=== PATIENT | male | born 1965 | race Two or more races ===

== ENCOUNTER 2025-02-20 14:35 | Outpatient (REF) | payer OTHER, SELFPAY ==
--- NOTE | ~2025-02-20 | XR_ITS ---
EXAMINATION: Bilateral knee 3 views each CLINICAL INDICATION: Bilateral knee pain. COMPARISON: None. FINDINGS: Left knee: There is mild loss of medial and patellofemoral compartment joint space with minimal periarticular spurring. No loose bodies, joint effusion or bony erosive changes seen. Right knee: Mild loss of medial and paravertebral compartment joint space with periarticular spurring. No visible acute fracture, dislocation or subluxation seen. No joint effusion. The soft tissues are normal. XR/XR Knee Kosta 3V IMPRESSION: Mild DJD medial and patellofemoral compartments. No visible acute fracture or dislocation seen. Electronically signed by: Lukasz Arango MD 02/21/2025 08:23 AM EDT
[2025-02-20 15:00] LABS: MANUAL DIFF FLAG NO
[2025-02-20 15:39] LABS: Basophils Percent Auto 0.5 % (0-2); Eosinophils Absolute Auto 0.2 X10*3/uL (0.0-0.4); Eosinophils Percent Auto 2.7 % (0-4); Hematocrit 37.4 % (42.0-52.0); Hemoglobin 12.2 g/dl (14.0-18.0); Imm Gran Abs Auto 0.05 X10*3/uL (0.00-0.03); Imm Gran Pct Auto 0.8 % (0.0-0.4); Lymphocytes Absolute Auto 2.3 X10*3/uL (1.2-4.9); Lymphocytes Percent Auto 35.5 % (20-40); Mean Corpuscular HGB Conc 32.6 g/dl (31.0-36.0); Mean Corpuscular Hemoglobin 28.2 pg (27.0-33.0); Mean Corpuscular Volume 86.4 fL (80.0-98.0); Mean Platelet Volume 10.6 fL (9.4-12.4); Monocytes Absolute Auto 0.5 X10*3/uL (0.1-1.2); Monocytes Percent Auto 7.6 % (2-11); Neutrophils Absolute Auto 3.5 x10*3/uL (2.0-8.3); Neutrophils Percent Auto 52.9 % (45-73); Platelet Count 206 X10*3/uL (160-400); Red Blood Count 4.33 X10*6/uL (4.60-5.80); Red Cell Distribution Width 12.6 % (11.0-16.0); White Blood Count 6.6 X10*3/uL (4.8-10.8)
[2025-02-20 15:47] LABS: Estimated Average Glucose 163 mg/dL; Hemoglobin A1c % 7.3 % (<6.0); Total Hemoglobin (HGBA1C) 3178.6419 umol/L
[2025-02-20 16:02] LABS: Alanine Aminotransferase 18 U/L (0-40); Albumin Level 4.1 g/dL (3.5-5.0); Alkaline Phosphatase 72 U/L (39-117); Anion Gap 10 (12-20); Aspartate Amino Transferase 18 U/L (5-37); Bilirubin Total 0.3 mg/dL (0.0-1.0); Blood Urea Nitrogen 11 mg/dL (9-16); Calcium 9.7 mg/dL (8.4-10.2); Carbon Dioxide 28 mmol/L (22-29); Chloride 108 mmol/L (96-108); Cholesterol 149 mg/dL (<200); Estimated Glomerular Filt Rate > 60; Glucose Random 127 mg/dL (60-115); HDL Cholesterol 59 mg/dL (>40); LDL Cholesterol Calculated 69 mg/dL (<100); Potassium 4.6 mmol/L (3.3-5.1); Sodium 141 mmol/L (135-145); Total Protein 6.9 g/dL (6.5-8.0); Triglycerides 106 mg/dL (<150)
[2025-02-20 16:37] LABS: Creatinine Urine 69.58 mg/dL; Microalbum/Creatinine Ratio Ur 8.6 ug/mg cr (<30)
--- OUTSIDE RECORDS SUMMARY | 2025-02-20 17:09 | XMS_ITS | Encounter Summary ---
Author Organization [facility] Address [address] [place] [address] Care Team Providers Care Bar Gauger And Lubricator Tender Name Role Phone Chance Bryant MD Primary Care Provider [phone] Encounter Details Date Type Department Care Team (Late st Contact Info) Description 04/22/2013 Ophthalmology Data Conversion [facility] Historical Conversion Department [address] [place] [address] [address] Social History Tobacco Use Types Packs/Day Years Used Date Smoking Tobacco: Never Assessed Sex and Gender Information Value Date Recorded Sex Assigned at Male 04/01/2023 1:10 PM EDT Legal Sex Male 4:57 AM EDT Gender Identity Male 04/01/2023 1:10 PM EDT Sexual Orientation Straight 04/01/2023 1: 10 PM EDT documented as of this encounter Plan of Treatment Upcoming Encounters Date Type Department Care Team (Late st Contact Info) Description 03/31/2025 9:00 AM EDT Office Visit [facility] 10 [address] Main Department 10 [facility] [place] [address] Chance Bryant MD [address] [place] [address] 05/03/2025 8:00 AM EDT Office Visit [facility] 198 [facility] Rheumatology [address] [place] [address] Pedro Gerardo MD [address] [place] [address] 05/09/2025 12:00 PM EDT Office Visit [facility] Ophthalmology 20 [place] [address] Michaela Su MD 20 [place] [address] documented as of this encounter Visit Diagnoses Not on filedocumented in this encounter Additional Health Concerns Infection Onset Date Last Indicated Resolved Time R/O Respiratory Virus Infection 01/29/2024 01/29/2024 1:17 PM EDT R/O Influenza 01/29/2024 01/29/2024 01/29/2024 1:1 7 PM EDT COVID-19 - Suspected infection 01/29/2024 01/29/2024 01/29/2024 1:17 PM EDT documented as of this encounter Care Teams Bar Gauger And Lubricator Tender Relationship Specialty Start Date End Date Chance Bryant MD [address] [place] [address] PCP - General Family Medicine 08/08/24 documented as of this encounter
--- OUTSIDE RECORDS SUMMARY | 2025-02-20 17:09 | XMS_ITS | Encounter Summary ---
Author Organization [facility] Address [address] [place] [address] Care Team Providers Care Unit Controller Name Role Phone Chance Bryant MD Primary Care Provider [phone] Encounter Details Date Type Department Care Team (Late st Contact Info) Description 08/16/2019 Ophthalmology Data Conversion [facility] Historical Conversion Department 100 [place] [address] [address] Social History Tobacco Use Types Packs/Day Years Used Date Smoking Tobacco: Former Comments:: Sex and Gender Information Value Date Recorded Sex Assigned at Male 04/01/2023 1:10 PM EDT Legal Sex Male 4:57 AM EDT Gender Identity Male 04/01/2023 1:10 PM EDT Sexual Orientation Straight 04/01/2023 1: 10 PM EDT documented as of this encounter Plan of Treatment Upcoming Encounters Date Type Department Care Team (Late Contact Info) Description 03/31/2025 9:00 AM EDT Office Visit [facility] 10 N Main Department 10 [facility] [place] [address] Chance Bryant MD [address] [place] [address] 05/03/2025 8:00 AM EDT Office Visit [address] Rheumatology [address] [place] [address] Pedro Gerardo MD [address] [place] [address] 05/09/2025 12:00 PM EDT Office Visit [facility] Ophthalmology [address] [place] [address] Michaela Su MD 20 [place] [address] documented as of this encounter Visit Diagnoses Not on filedocumented in this encounter Additional Health Concerns Infection Onset Date Last Indicated Resolved Time R/O Respiratory Virus Infection 01/29/2024 01/29/2024 1:17 PM EDT R/O Influenza 01/29/2024 01/29/2024 01/29/2024 1:1 7 PM EDT COVID-19 - Suspected infection 01/29/2024 01/29/2024 01/29/2024 1:17 PM EDT documented as of this encounter Care Teams Unit Controller Relationship Specialty Start Date End Date Chance Bryant MD [address] [place] [address] PCP - General Family Medicine 08/08/24 documented as of this encounter
--- OUTSIDE RECORDS SUMMARY | 2025-02-20 17:09 | XMS_ITS | Encounter Summary ---
Author Organization [facility] Address [address] [place] [address] Care Team Providers Care Mental Telepathist Name Role Phone Chance Bryant MD Primary Care Provider Encounter Details Date Type Department Care Team ([facility] Contact Info) Description 04/28/2023 Ophthalmology Data Conversion [facility] Ophthalmology [address] [place] [address] Michaela Su MD [address] [place] [address] Social History Tobacco Use Types Packs/Day Years Used Date Smoking Tobacco: Former Smokeless Tobacco: Never Comments:: Alcohol Use Standard Drinks/Week Comments Not Currently 0 (1 standard drink = 0.6 oz pur e alcohol) Sex and Gender Information Value Date Recorded Sex Assigned at Male 04/01/2023 1:10 PM EDT Legal Sex Male 4:57 AM EDT Gender Identity Male 04/01/2023 1:10 PM EDT Sexual Orientation Straight 04/01/2023 1: 10 PM EDT documented as of this encounter Plan of Treatment Upcoming Encounters Date Type Department Care Team ([facility] Contact Info) Description 03/31/2025 9:00 AM EDT Office Visit [facility] 10 N Main Department [address] [place] [phone] Chance Bryant MD [address] [place] [address] 05/03/2025 8:00 AM EDT Office Visit [address] Rheumatology 198 [place] [address] Pedro Gerardo MD [address] [place] [address] 05/09/2025 12:00 PM EDT Office Visit [facility] Ophthalmology 20 [place] [address] Michaela Su MD 20 [place] [address] documented as of this encounter Visit Diagnoses Not on filedocumented in this encounter Additional Health Concerns Infection Onset Date Last Indicated Resolved Time R/O Respiratory Virus Infection 01/29/2024 01/29/2024 1:17 PM EDT R/O Influenza 01/29/2024 01/29/2024 01/29/2024 1:1 7 PM EDT COVID-19 - Suspected infection 01/29/2024 01/29/2024 01/29/2024 1:17 PM EDT documented as of this encounter Care Teams Mental Telepathist Relationship Specialty Start Date End Date Chance Bryant MD [address] [place] [address] PCP - General Family Medicine 08/08/24 documented as of this encounter
--- OUTSIDE RECORDS SUMMARY | 2025-02-20 17:09 | XMS_ITS | Encounter Summary ---
Author Organization [facility] Address [address] [place] [address] Care Team Providers Care Frit Mixer And Burner Name Role Phone Chance Bryant MD Primary Care Provider [phone] Encounter Details Date Type Department Care Team (Late st Contact Info) Description 05/16/2013 Ophthalmology Data Conversion [facility] Historical Conversion Department 100 [place] [address] [address] Social History Tobacco Use Types Packs/Day Years [...] Description 03/31/2025 9:00 AM EDT Office Visit [facility] 10 [address] Main Department 10 [facility] [place] [address] Chance Bryant MD [address] [place] [address] 05/03/2025 8:00 AM EDT Office Visit [facility] [address] [facility] Rheumatology [address] [place] [address] Pedro Gerardo MD [address] [place] [address] 05/09/2025 12:00 PM EDT Office Visit [facility] Ophthalmology 20 [place] [address] Michaela Su MD 20 [place] [address] documented as of this encounter Visit Diagnoses Not on filedocumented in this encounter Additional Health Concerns Infection Onset Date Last Indicated Resolved Time R/O Respiratory Virus Infection 01/29/2024 01/29/2024 1:17 PM EDT R/O Influenza 01/29/2024 01/29/2024 01/29/2024 1:1 7 PM EDT COVID-19 - Suspected infection 01/29/2024 01/29/2024 01/29/2024 1:17 PM EDT documented as of this encounter Care Teams Frit Mixer And Burner Relationship Specialty Start Date End Date Chance Bryant MD [address] [place] [address] PCP - General Family Medicine 08/08/24 documented as of this encounter
--- OUTSIDE RECORDS SUMMARY | 2025-02-20 17:09 | XMS_ITS | Encounter Summary ---
Author Organization [facility] Address [address] [place] [address] Care Team Providers Care Net Trainer Name Role Phone Chance Bryant MD Primary Care Provider [phone] Encounter Details Date Type Department Care Team (Late st Contact Info) Description 08/12/2018 Ophthalmology Data Conversion [facility] Historical Conversion Department 100 [place] [address] [address] Social History Tobacco Use Types Packs/Day Years [...] Description 03/31/2025 9:00 AM EDT Office Visit [facility] 10 N Main Department 10 [facility] [place] [address] Chance Bryant MD [address] [place] [address] 05/03/2025 8:00 AM EDT Office Visit [address] Rheumatology [address] [place] [address] Pedro Gerardo MD [address] [place] [address] 05/09/2025 12:00 PM EDT Office Visit [facility] Ophthalmology [address] [place] [address] Michaela Su MD 20 [place] [address] documented as of this encounter Visit Diagnoses Not on filedocumented in this encounter Additional Health Concerns Infection Onset Date Last Indicated Resolved Time R/O Respiratory Virus Infection 01/29/2024 01/29/2024 1:17 PM EDT R/O Influenza 01/29/2024 01/29/2024 01/29/2024 1:1 7 PM EDT COVID-19 - Suspected infection 01/29/2024 01/29/2024 01/29/2024 1:17 PM EDT documented as of this encounter Care Teams Net Trainer Relationship Specialty Start Date End Date Chance Bryant MD [address] [place] [address] PCP - General Family Medicine 08/08/24 documented as of this encounter
--- OUTSIDE RECORDS SUMMARY | 2025-02-20 17:09 | XMS_ITS | Encounter Summary ---
Author Organization [facility] Address [address] [place] [address] Care Team Providers Care Grazing Examiner Name Role Phone Chance Bryant MD Primary Care Provider [phone] Encounter Details Date Type Department Care Team (Late st Contact Info) Description 08/12/2018 Ophthalmology Data Conversion [facility] Historical Conversion Department 100 [place] [address] [address] Social History Tobacco Use Types Packs/Day Years [...] Description 03/31/2025 9:00 AM EDT Office Visit [facility] 10 N Main Department 10 [facility] [place] [address] Cahnce Bryant MD [address] [place] [address] 05/03/2025 8:00 AM EDT Office Visit [address] Rheumatology [address] [place] [address] Pedro Gerardo MD [address] [place] [address] 05/09/2025 12:00 PM EDT Office Visit [facility] Ophthalmology [address] [place] [address] Michaela Su MD 20 [place] [address] documented as of this encounter Visit Diagnoses Not on filedocumented in this encounter Additional Health Concerns Infection Onset Date Last Indicated Resolved Time R/O Respiratory Virus Infection 01/29/2024 01/29/2024 1:17 PM EDT R/O Influenza 01/29/2024 01/29/2024 01/29/2024 1:1 7 PM EDT COVID-19 - Suspected infection 01/29/2024 01/29/2024 01/29/2024 1:17 PM EDT documented as of this encounter Care Teams Grazing Examiner Relationship Specialty Start Date End Date Chance Bryant MD [address] [place] [address] PCP - General Family Medicine 08/08/24 documented as of this encounter
--- OUTSIDE RECORDS SUMMARY | 2025-02-20 17:09 | XMS_ITS | Encounter Summary ---
Author Organization [facility] Address [address] [place] [address] Care Team Providers Care Java Manager Name Role Phone Chance Bryant MD Primary Care Provider [phone] Encounter Details Date Type Department Care Team ([facility] Contact Info) Description 04/23/2022 Ophthalmology Data Conversion [facility] Ophthalmology [address] [place] [address] Michaela Su MD [address] [place] [address] Social History Tobacco Use Types Packs/Day Years [...] Upcoming Encounters Date Type Department Care Team ([facility] Contact Info) Description 03/31/2025 9:00 AM EDT Office Visit [facility] 10 [address] Main Department [address] [place] [phone] Chance Bryant MD [address] [place] [address] 05/03/2025 8:00 AM EDT Office Visit [address] Rheumatology 198 [place] [address] Pedro Gerardo MD [address] [place] [address] 05/09/2025 12:00 PM EDT Office Visit [facility] Ophthalmology 20 [place] [address] Michaela Su MD 20 [place] [address] documented as of this encounter Visit Diagnoses Not on filedocumented in this encounter Additional Health Concerns Infection Onset Date Last Indicated Resolved Time R/O Respiratory Virus Infection 01/29/2024 01/29/2024 1:17 PM EDT R/O Influenza 01/29/2024 01/29/2024 01/29/2024 1:1 7 PM EDT COVID-19 - Suspected infection 01/29/2024 01/29/2024 01/29/2024 1:17 PM EDT documented as of this encounter Care Teams Java Manager Relationship Specialty Start Date End Date Chance Bryant MD [address] [place] [address] PCP - General Family Medicine 08/08/24 documented as of this encounter
--- OUTSIDE RECORDS SUMMARY | 2025-02-20 17:09 | XMS_ITS | Encounter Summary ---
Author Organization [facility] Address [address] [place] [address] Care Team Providers Care Internet Marketing Director Name Role Phone Chance Bryant MD Primary Care Provider [phone] Reason for Visit * Reason Onset Date Comments cs appointment 02/18/2023 Encounter Details Date Type Department Care Team ([facility] Contact Info) Description 02/18/2023 Telephone [facility] Central Scheduling Department [address] [place] [address] Telephone Intake, Staff cs appointment Social History Tobacco Use Types Packs/Day Years [...] PM EDT documented as of this encounter Miscellaneous Notes * Telephone Encounter - Irina Cassidy - 02/18/2023 11:46 AM EDT Spoke with pt scheduled pt 04/02 at 9:00 am. * Telephone Encounter - Laura Ocampo - 02/18/2023 11:12 AM EDT PT provider left clinic. Unable to schedule 2 Po: [phone] Thanks documented in this encounter Plan of Treatment Upcoming Encounters Date Type Department Care Team ([facility] st Contact Info) Description 03/31/2025 9:00 AM EDT Office Visit [facility] 10 [address] Main Department 10 [place] [address] Chance Bryant MD [address] [place] [address] 05/03/2025 8:00 AM EDT Office Visit [facility] 198 [facility] Rheumatology [address] [place] [address] Pedro Gerardo MD [address] [place] [address] 05/09/2025 12:00 PM EDT Office Visit [facility] Ophthalmology [address] [place] [address] Michaela Su MD [address] [place] [address] documented as of this encounter Visit Diagnoses Not on filedocumented in this encounter Additional Health Concerns Infection Onset Date Last Indicated Resolved Time R/O Respiratory Virus Infection 01/29/2024 01/29/2024 1:17 PM EDT R/O Influenza 01/29/2024 01/29/2024 01/29/2024 1:1 7 PM EDT COVID-19 - Suspected infection 01/29/2024 01/29/2024 01/29/2024 1:17 PM EDT documented as of this encounter Care Teams Internet Marketing Director Relationship Specialty Start Date End Date Chance Bryant MD [address] [place] [address] PCP - General Family Medicine 08/08/24 documented as of this encounter
--- OUTSIDE RECORDS SUMMARY | 2025-02-20 17:09 | XMS_ITS | Encounter Summary ---
Author Organization [facility] Address [address] [place] [address] Care Team Providers Care Water Server Name Role Phone Chance Bryant MD Primary Care Provider [phone] Encounter Details Date Type Department Care Team (Late st Contact Info) Description 03/30/2019 Ophthalmology Data Conversion [facility] Historical Conversion Department 100 [place] [address] [address] Social History Tobacco Use Types Packs/Day Years [...] Description 03/31/2025 9:00 AM EDT Office Visit [facility] 10 [address] Main Department 10 [facility] [place] [address] Chance Bryant MD [address] [place] [address] 05/03/2025 8:00 AM EDT Office Visit [address] Rheumatology [address] [place] [address] Pedro Gerardo MD [address] [place] [address] 05/09/2025 12:00 PM EDT Office Visit [facility] Ophthalmology [address] [place] [address] Michaela Su MD 20 [place] [address] documented as of this encounter Visit Diagnoses Not on filedocumented in this encounter Additional Health Concerns Infection Onset Date Last Indicated Resolved Time R/O Respiratory Virus Infection 01/29/2024 01/29/2024 1:17 PM EDT R/O Influenza 01/29/2024 01/29/2024 01/29/2024 1:1 7 PM EDT COVID-19 - Suspected infection 01/29/2024 01/29/2024 01/29/2024 1:17 PM EDT documented as of this encounter Care Teams Water Server Relationship Specialty Start Date End Date Chance Bryant MD [address] [place] [address] PCP - General Family Medicine 08/08/24 documented as of this encounter
--- OUTSIDE RECORDS SUMMARY | 2025-02-20 17:09 | XMS_ITS | Encounter Summary ---
Author Organization [facility] Address [address] [place] [address] Care Team Providers Care Early Childhood Coordinator Name Role Phone Chance Bryant MD Primary Care Provider [phone] Encounter Details Date Type Department Care Team (Late st Contact Info) Description 08/16/2019 Ophthalmology Data Conversion [facility] Historical Conversion Department 100 [place] [address] [address] Social History Tobacco Use Types Packs/Day Years [...] Description 03/31/2025 9:00 AM EDT Office Visit [facility] 10 [address] Main Department 10 [facility] [place] [address] Chance Bryant MD [address] [place] [address] 05/03/2025 8:00 AM EDT Office Visit [address] Rheumatology [address] [place] [address] Pedro Gerardo MD [address] [place] [address] 05/09/2025 12:00 PM EDT Office Visit [facility] Ophthalmology [address] [place] [address] Michaela Su MD 20 [place] [address] documented as of this encounter Visit Diagnoses Not on filedocumented in this encounter Additional Health Concerns Infection Onset Date Last Indicated Resolved Time R/O Respiratory Virus Infection 01/29/2024 01/29/2024 1:17 PM EDT R/O Influenza 01/29/2024 01/29/2024 01/29/2024 1:1 7 PM EDT COVID-19 - Suspected infection 01/29/2024 01/29/2024 01/29/2024 1:17 PM EDT documented as of this encounter Care Teams Early Childhood Coordinator Relationship Specialty Start Date End Date Chance Bryant MD [address] [place] [address] PCP - General Family Medicine 08/08/24 documented as of this encounter
--- OUTSIDE RECORDS SUMMARY | 2025-02-20 17:09 | XMS_ITS | Encounter Summary ---
Author Organization [facility] Address [address] [place] [address] Care Team Providers Care Marine Engineering Technicians Name Role Phone Chance Bryant MD Primary Care Provider [phone] Encounter Details Date Type Department Care Team ([facility] Contact Info) Description 04/28/2023 Ophthalmology Data Conversion [facility] Ophthalmology [address] [place] [address] Michaela Su MD [address] [place] [address] Social History Tobacco Use Types Packs/Day Years [...] Upcoming Encounters Date Type Department Care Team ([facility] Contact Info) Description 03/31/2025 9:00 AM EDT Office Visit [facility] 10 N Main Department [address] [place] [phone] Chance Bryant MD [address] [place] [address] 05/03/2025 8:00 AM EDT Office Visit [address] Rheumatology 198 [place] [address] Pedro Gerardo MD [address] [place] [address] 05/09/2025 12:00 PM EDT Office Visit [facility] Ophthalmology 20 [place] [address] Michaela Su MD 20 [place] [address] documented as of this encounter Visit Diagnoses Not on filedocumented in this encounter Additional Health Concerns Infection Onset Date Last Indicated Resolved Time R/O Respiratory Virus Infection 01/29/2024 01/29/2024 1:17 PM EDT R/O Influenza 01/29/2024 01/29/2024 01/29/2024 1:1 7 PM EDT COVID-19 - Suspected infection 01/29/2024 01/29/2024 01/29/2024 1:17 PM EDT documented as of this encounter Care Teams Marine Engineering Technicians Relationship Specialty Start Date End Date Chance Bryant MD [address] [place] [address] PCP - General Family Medicine 08/08/24 documented as of this encounter
--- OUTSIDE RECORDS SUMMARY | 2025-02-20 17:09 | XMS_ITS | Clinical Summary ---
Author Organization [facility] Address [address] [place] [address] Care Team Providers Care Dining Room Captain Name Role Phone Chance Bryant MD Primary Care Provider [phone] Allergies Active Allergy Reactions Criticality Noted Date Comments Aspirin Unknown,Swelling High 10/15/2016 Ibuprofen Unknown,Swelling High 10/15/2016 Nsaids (Non-Steroidal Anti-Inflammatory Drug) Unknown 05/09/2024 Medications Systane Ultra 0.4-0.3 % drops eye drops Instill 1 drop into both eyes every 4 hours as needed for dry eyes. 3 Active ergocalciferol (VITAMIN D2) 1,250 mcg (50,000 unit) capsule Take 50,000 Units by mouth once a week. Active FreeStyle Lite Meter meterIndications :Type 2 diabetes mellitus with other specified complication, unspecified whether termite renewal inspector insulin use (HCC) Test 2 times daily 1 each 3 4 Active clotrimazole (LOTRIMIN) 1% creamIndications :Balanitis Apply topically to the affected area 2 times a day. 45 g 1 4 Active cyanocobalamin (vitamin B-12) 1,000 mcg tablet Take 1,000 mcg by mouth once a day. Active SITagliptin phosphate (JANUVIA) 100 mg tabletIndication s:Type 2 diabetes mellitus with hyperglycemia, without long-term current use of insulin (HCC) Take 1 tablet (100 mg total) by mouth once a day. 90 tablet 1 5 08/12/20 25 Active dapagliflozin propanediol (Farxiga) 10 mgIndications:Ty pe 2 diabetes mellitus with other specified complication, unspecified whether termite renewal inspector insulin use (HCC) Take 1 tablet (10 mg total) by mouth once a day. 90 tablet 3 5 02/14/20 26 Active Freestyle lancets 28 gaugeIndications :Type 2 diabetes mellitus with hyperglycemia, without long-term current use of insulin (HCC) Use to test 3 times daily. 100 each 3 5 Active Freestyle Lite test stripsIndication s:Type 2 diabetes mellitus with hyperglycemia, without long-term current use of insulin (HCC) Use to test 3 times daily. 300 strip 5 Active pravastatin (PRAVACHOL) 40 mg tabletIndication s:Hypercholester olemia Take 1 tablet (40 mg total) by mouth once a day. 90 tablet 3 5 Active metFORMIN ER (GLUCOPHAGE XR) 500 mg tabletIndication s:Type 2 diabetes mellitus with other specified complication, unspecified whether fci insulin use (HCC) TAKE 1 TABLET BY MOUTH WITH BREAKFAST AND 2 TABLETS WITH DINNER 90 tablet 3 5 Active Active Problems Problem Noted Date Diagnosed Date Esophageal dysphagia 05/24/2024 Irritable bowel syndrome 03/29/2024 Assessment & Plan (05/24/2024 7:30 AM EDT): Constipation predominant, using Colace as needed, feels that symptoms are worsening. Also due for colonoscopy, referring to Dr. Yancey Benign prostatic hyperplasia with lower urinary tract symptoms 09/20/2023 Bradycardia 09/20/2023 Chronic GERD 09/20/2023 Assessment & Plan (05/24/2024 7:30 AM EDT): Symptoms under adequate control, looking to establish with GI Dr. Yancey as he does have a history of esophageal stenosis requiring dilation Erectile dysfunction 09/20/2023 History of allergy to NSAID 09/20/2023 History of esophageal dilatation 09/20/2023 Assessment & Plan (05/24/2024 7:30 AM EDT): Due for endoscopy, referring to Dr. 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 Orders: Vitamin D 25 hydroxy; Future Left leg numbness 11/11/2022 Hypercholesterolemia 03/02/2019 Assessment & Plan (08/08/2024 2:38 PM EDT): Latest Ref Rng & Units 03/29/2024 9:32 AM LDL LDL Cholesterol mg/dL 66 Statin is well tolerated, continue with current treatments. Orders: Lipid Panel w/Reflex to Direct LDL; Future Assessment & Plan (05/24/2024 7:31 AM EDT): LDL goal of less than 70 achieved with current dose of statin will continue Diabetes mellitus 03/02/2019 Assessment & Plan (08/08/2024 2:38 PM EDT): Images from the original note were not included. Latest Ref Rng & Units 03/29/2024 9:32 AM 07/06/2023 8:43 AM 11/11/2022 2:04 PM HgbA1c Hemoglobin A1C % 7.7 7.7 6.6 Farxiga, Januvia, and metformin are well tolerated, due for labs. Orders: Freestyle Lite test strips; Use to test 3 times daily. Freestyle lancets 28 gauge; Use to test 3 times daily. Hemoglobin A1c; Future Assessment & Plan (05/24/2024 7:31 AM EDT): Managed by endocrinology Dr. Slade. Most recent A1c 7.7%, working to bring this back into the sixes. Up-to-date with diabetic eye exam Dr. Felipe lipids at goal with use of statin Assessment & Plan (03/29/2024 8:30 AM EDT): Remains under the care of endocrinology, Dr. Slade Assessment & Plan (01/19/2024 8:46 AM EDT): Under care of endocrinology, Dr. Slade. Vitamin B12 deficiency anemia 03/17/2016 Assessment & Plan (08/08/2024 2:38 PM EDT): Vegan diet. Occasional oral supplement, due for labs. Orders: Vitamin B12; Future Assessment & Plan (01/19/2024 8:46 AM EDT): Overdue for labs, out of date on his injections Spinal stenosis, lumbar 06/21/2015 Resolved Problems Problem Noted Date Diagnosed Date Resolved Date Health care maintenance 03/29/202407/12 Acute cough 01/19/2024 03/29/2024 Assessment & Plan (01/19/2024 8:46 AM EDT): Unknown upper respiratory illness while in [place], completed course of unknown antibiotics and unclear results of his chest x-ray, will repeat as ongoing cough and discomfort with deep breathing Chronic left shoulder pain 09/20/2023 0 08/08/2024 Impingement syndrome of right shoulder 09/20/2023 08/08/2024 Neck pain 09/20/2023 01/19/2024 Polyarthralgia 09/20/2023 01/19/2024 Serum potassium elevated 09/20/202310/2024 Weakness of left side of body 09/20/2023 01/19/2024 Numbness and tingling of left side of face 02/02/2023 01/19/2024 Paresthesia 11/11/2022 01/19/2024 Burning with urination 03/17/201601/18 Somatic dysfunction of sacroiliac joint 06/21/2015 01/19/2024 Encounters Date Type Department Care Team Description 02/13/2025 Refill [facility] [address] [facility] [place] [address] Maryellen Benitez [place] Type 2 diabetes mellitus with hyperglycemia, without long-term current use of insulin (HCC); Type 2 diabetes mellitus with other specified complication, unspecified whether termite renewal inspector insulin use (HCC); Hypercholesterolemia 02/13/2025 Refill [facility] [address] [facility] Department [address] [place] [address] Maryellen Benitez [place] 02/13/2025 Telephone [facility] [address] [facility] [address] [place] [phone] Chance Bryant MD Med Refill 02/03/2025 Refill [facility] [address] [facility] Endocrinology Department [address] [place] [address] Edy Slade MD Type 2 diabetes mellitus with other specified complication, unspecified whether fci insulin use 12/28/2024 Refill [facility] [address] [facility] [address] [phone] Navin Kelly MD Hypercholesterolemia (Primary Dx) 12/28/2024 Refill [facility] [address] [facility] Endocrinology Department [address] [place] [address] Edy Slade MD Type 2 diabetes mellitus with other specified complication, unspecified whether fci insulin use from Last 3 Months Immunizations Immunization Administration Dates Next Due Influenza, Injectable, Madin Woodburn Canine Kidney, Preservative Free, Quadrivalent 08/20/2020,12/03/2018 Influenza, Injectable, Quadr ivalent, Contains Preservative 10/09/2018 Influenza, Injectable, Quadr ivalent, Preservative Free 11/22/2022,08/18/2019,08/18/2016 Influenza, Quadrivalent, Rec ombinant, Injectable, PF 10/18/2021 Influenza, Trivalent, MDV, Injectable 08/08/2014 Influenza, Unspecified 08/02/2024,11/04/2023 Pneumococcal Polysaccharide Vaccine, 23 Valent 08/18/2016 Pneumococcal conjugate PCV20 ,polysaccharide [id number] conjugate, adjuvant, PF (Prevnar 20) 08/08/2024 Tetanus Toxoid, Reduced Diph theria Toxoid, and Acellular Pertussis Vaccine, Adsorbed 12/19/2019 Zoster Vaccine Recombinant 08/17/2024 Family History Medical History Relation Name Comments Other Brother Family History of diabetes mellitus Other Father Family history of Other Mother Family History of diabetes mellitus Relation Name Status Comments Brother Father Mother Social History Tobacco Use Types Packs/Day Years Used Date Smoking Tobacco: Former Smokeless Tobacco: Never Tobacco Cessation:Counseling Given: Not Answered Comments:: Alcohol Use Standard Drinks/Week Comments Not Currently 0 (1 standard drink = 0.6 oz pur e alcohol) [facility] Utilities Answer Date Recorded In the past 12 months has th e [employer], gas, oil, or water [employer] threatened to shut off services in your home? No 03/29/2024 Hunger Vital Sign Answer Date Recorded Within the past 12 months, y ou worried that your food would run out before you got the money to buy more. Never true 03/29/20 24 Within the past 12 months, t he food you bought just didn't last and you didn't have money to get more. Never true 03/29/2024 Transportation Answer Date Recorded In the past 12 months, has l ack of reliable transportation kept you from medical appointments, meetings, work or from getting things needed for daily living? No 03/29/2024 Housing Answer Date Recorded Housing Risk Low 2 03/29/2024 Housing Risk Medium Not on file 03/29/2024 Housing Risk High Not on file 03/29/2024 What is your living situation today? [facility]STEAD[facility] 03/29/2024 Sex and Gender Information Value Date Recorded Sex Assigned at Male 04/01/2023 1:10 PM EDT Legal Sex Male 4:57 AM EDT Gender Identity Male 04/01/2023 1:10 PM EDT Sexual Orientation Straight 04/01/2023 1: 10 PM EDT Last Filed Vital Signs Vital Sign Reading Time Taken Comments Blood Pressure 107/60 10/17/2024 12:40 PM EST Pulse 61 10/17/2024 12:40 PM EST Temperature 36.6 ??C (97.9 ??F) 10/17/2024 11:[address] Respiratory Rate 18 10/17/2024 12:40 PM EST Oxygen Saturation 98% 10/17/2024 12:40 PM EST Inhaled Oxygen Concentration - - Weight 85.7 kg (189 lb) 10/17/2024 11:07 AM EST Height 172.7 cm (5' 8 ) 10/17/2024 11:07 AM EST Body Mass Index 28.74 10/17/2024 11:07 AM EST Plan of Treatment Upcoming Encounters Date Type Department Care Team (Late st Contact Info) Description 03/31/2025 9:00 AM EDT Office Visit [facility] [address] [facility] [place] [phone] Chance Bryant MD [address] [place] [phone] 05/03/2025 8:00 AM EDT Office Visit [facility] [address] Rheumatology [address] [place] [phone] Palmer Gerardo MD [address] [place] [address] 05/09/2025 12:00 PM EDT Office Visit [facility] Ophthalmology [address] [place] [address] Michaela Su MD [address] [place] [id number] Health Maintenance Due Date Last Done Comments Cologuard 1965 FOBT / Fit Test [address] Lung Cancer Screening (Baseline) 01/10/2015 01/10/2014 COVID-19 Vaccine ( season) 2024 Zoster Vaccines (2 of 2) 10/12/2024 08/17/2024 Alcohol/Substance Use Screening 11/09/2024 01/19/2024 Depression Screening and Follow-Up 11/09/2024 01/19/2024 Social Drivers of Health Annual Screening 11/09/2024 Hemoglobin A1C 02/09/2025 08/11/2024, 05/2 11/2023, 01/04/2024, Additional history exists Urine Microalbumin 03/29/2025 03/29/2024, 0 01/19/2024, 03/05/2023, Additional history exists Ophthalmology Exam 05/05/2025 05/05/2024, 0 05/05/2024, 05/05/2024, Additional history exists Basic Metabolic Panel 07/26/2025 07/26/2024 , 04/05/2024, 03/29/2024, Additional history exists DTaP,Tdap,and Td Vaccines (2 - Td or Tdap) 12/19/2029 12/19/2019 Colon Cancer Screening 10/17/2034 Colonoscopy 10/17/2034 10/17/2024, 07/2024, 04/14/2016 RSV Vaccine (60+ years old and patients) (1 - 1-dose 75+ series) 2039 Abdominal Aortic Aneurysm (AAA) Screening Completed 03/29/2019, 07/16/2017 Hepatitis C Screening Completed 07/26/2024 Influenza Vaccine Completed 08/02/2024, , 11/22/2022, Additional history exists Pneumococcal Vaccine: 50+ Years Completed 08/08/2024, 08/18/2016 HIV Screening Completed 08/11/2024 Hepatitis B Vaccines Aged Out No long er eligible based on patient's age to complete this topic Procedures * Due to [place] state law, this organization might not be sharing negative HIV tests. Procedure Name Priority Date/Time Associated Diagnosis Comments COLONOSCOPY 10/17/2024 HEMOGLOBIN A1C Routine 08/11/2024 8:35 AM EDT Type 2 diabetes mellitus with hyperglycemia, without long-term current use of insulin HEPATITIS C ANTIBODY W/REFLEX TO HCV RNA, QUANTITATIVE PCR Routine 07/26/2024 9:05 AM EDT ARMSTRONG (nonalcoholic steatohepatitis) COMPREHENSIVE METABOLIC PANEL Routine 07/26/2024 9:05 AM EDT ARMSTRONG (nonalcoholic steatohepatitis) MICROALBUMIN, RANDOM URINE WITH CREATININE Routine 03/29/2024 9:32 AM EDT Type 2 diabetes mellitus with hyperglycemia, without long-term current use of insulin CT ABDOMEN PELVIS W CONTRAST Routine 03/29/2019 7:[address] ANGIOGRAM CHEST W WO CONTRAST Routine 01/10/2014 1:24 PM EST from Last 3 Months or Most Recently Relevant to Health Maintenance Results * Due to [place] state law, this organization might not be sharing negative HIV tests. * COLONOSCOPY (10/17/2024) Narrative Procedure Note Renato Yancey MD - 10/17/2024 12:17 PM EST [facility] Patient Name: Po Shaw Procedure Date: 10/17/2024 12:17 PM Date of : 1965 Admit Type: Outpatient Age: 59 Room: GI PROCEDURE Gender: Male Note Status: Finalized Attending MD: Renato Yancey MD Procedure: Colonoscopy Indications: Screening for colorectal malignant neoplasm Comorbidities Providers: Renato Yancey MD Referring MD: Chance Bryant (Referring ) Requesting Provider: Medicines: Monitored Anesthesia Care Complications: No immediate complications. Estimated Blood Loss: Estimated blood loss: none. Procedure: After I obtained informed consent, the scope was passed under direct vision. Throughout theprocedure, the patient's blood pressure, pulse, and oxygen saturations were monitored continuously. The Colonoscope was introduced through the anus and advanced to the cecum, identified by appendiceal orifice and ileocecal valve. The colonoscopy was performed without difficulty. The patient tolerated the procedure well. Findings: The perianal and digital rectal examinations were normal. Non-bleeding internal hemorrhoids were found during retroflexion. The hemorrhoids were medium-sized and Grade I (internal hemorrhoids thatdo not prolapse). The exam was otherwise without abnormality. Biopsies were taken with a cold forceps for histology. Impression: - Non-bleeding internal hemorrhoids. - The examination was otherwise normal. - Biopsies were taken with a cold forceps for histology. Recommendation: - Await pathology results. - Return to my office in 4 weeks. Renato Yancey MD 10/17/2024 12:27:59 PM Number of Addenda: 0 Note Initiated On: 10/17/2024 12:17 PM Renato Yancey MD PROVATION PROCEDURES Final Resul t * (ABNORMAL) Hemoglobin A1c (08/11/2024 8:35 AM EDT) Hemoglobin A1c 7.2(H) 4.0 - 5.7 % 08/11/2024 9:09 AM EDT [facility] Estimated Average Glucose 160 mg/dL 08/11/2024 9:09 AM EDT [facility] Blood Structure of peripheral vein / Unknown Venipuncture / Unknown 08/11/2024 8:35 AM EDT 08/11/2024 8:44 AM EDT Diandra Nazario NP LAB BLOOD ORDERABLES Final Result [facility] [address] [place] [address], [place] [phone] * Hepatitis C Antibody w/Reflex to HCV RNA, Quantitative PCR (07/26/2024 9:05 AM EDT) Pathologist [facility] Hepatitis C Antibody Interpretation Nonreactive Nonreactive 07/26/2024 1:20 PM EDT [facility] Blood Structure of peripheral vein / Unknown Venipuncture / Unknown 07/26/2024 9:05 AM EDT 07/26/2024 9:08 AM EDT us Renato Yancey MD LAB BLOOD ORDERABLES Final Resul t [facility] [address] [place] [address], * (ABNORMAL) Comprehensive Metabolic Panel (07/26/2024 9:05 AM EDT) Pathologist [facility] NA 143 136 - 145 mmol/L 07/26/2024 9:52 AM EDT [facility] K 4.9 3.5 - 5.1 mmol/L 07/26/2024 9:52 AM EDT [facility] Cl 108 98 - 109 mmol/L 07/26/2024 9:52 AM EDT [facility] CO2 25 23 - 32 mmol/L 07/26/2024 9:52 AM EDT [facility] Anion Gap 15 >=0 07/26/2024 9:52 AM EDT [facility] Glucose 144(H) 60 - 99 mg/dL 07/26/2024 9:52 AM EDT [facility] Creatinine 0.99 0.50 - 1.12 mg/dL 07/26/2024 9:52 AM EDT [facility] Calcium 9.3 8.4 - 10.4 mg/dL 07/26/2024 9:52 AM EDT [facility] Total Protein 7.2 6.6 - 8.7 g/dL 07/26/2024 9:52 AM EDT [facility] Albumin 4.4 3.5 - 5.0 g/dL 07/26/2024 9:52 AM EDT [facility] Bilirubin, Total 0.3 0.2 - 1.2 mg/dL 07/26/2024 9:52 AM EDT [facility] Alkaline Phosphatase 63 40 - 129 U/L 07/26/2024 9:52 AM EDT [facility] AST 20 0 - 40 U/L 07/26/2024 9:52 AM EDT [facility] ALT 15 <=41 U/L 07/26/2024 9:52 AM EDT [facility] BUN 18 8 - 23 mg/dL 07/26/2024 9:52 AM EDT [facility] eGFR 87 >=60 mL/min/1. 73m2 07/26/2024 9:52 AM EDT [facility] Comment:The estimated glomer ular filtration rate (eGFR) is calculated using a new formula developed by the NKF-ASN task force to eliminate race-based correction factors. The new formula uses serum/plasma creatinine, age, and gender to determine eGFR. A value below 60mls/min might indicate kidney disease and will be flagged. For additional information, see Meyer et al, Am J Kidney Dis. 2021;79(2):268- 288, A Unifying Approach for GFR estimation: Recommendations of the NKF-ASN Task Force on Reassessing the Inclusion of Race in Diagnosing Kidney Disease . Globulin, Total 2.8 2.1 - 4.2 g/dL 07/26/2024 9:52 AM EDT [facility] A/G Ratio 1.6 1.5 - 3.0 07/26/2024 9:52 AM EDT [facility] Blood Structure of peripheral vein / Unknown Venipuncture / Unknown 07/26/2024 9:05 AM EDT 07/26/2024 9:08 AM EDT us Renato Yancey MD LAB BLOOD ORDERABLES Final Resul t [facility] [address] [place] [id number], * Microalbumin, Random Urine with Creatinine (03/29/2024 9:32 AM EDT) Creatinine, Urine 104 mg/dL 03/29/2024 10:52 AM EDT [facility] Microalbumin, Urine 7 <=20 mg/L 03/29/2024 10:52 AM EDT [facility] Microalb/Creat Ratio, Random Urine 6.7 1.3 - 30.0 mg/g 03/29/2024 10:52 AM EDT [facility] Urine Urine specimen collection, clean catch / Unknown Non-Blood Collection / Unknown 03/29/2024 9:32 AM EDT 03/29/2024 10:16 AM EDT Hugh HERNÁNDEZ LAB URINE ORDERABLES Final Result Performing Organization Address City/State/[facility] Co de Phone Number [facility] [address] [address], [place] [phone] * CT Abdomen Pelvis with Contrast (03/29/2019 7:58 AM EDT) Anatomical Region Laterality Modality Body Computed Tomogra phy 03/29/2019 12:0 0 PM EDT Narrative 03/29/2019 12:43 PM EDT ? DEPARTMENT OF RADIOLOGY Patient: CATHLEEN SHAW ? Unit #: [id number] Ordering MD: RENATO YANCEY MD ?: 1965 Procedure: CT Abdomen & Pelvis W/IV & PO ?Age: 53 Location: CAT ? Exam Date: 03/29/19 Status: REG CLI ? Room/Bed: Primary MD: HUGH WRIGHT ? Patient ?Order: CTABPELIPO Additional Copy: ??RENATO YANCEY MD, ALAN PA - EXAMINATION: CT of the abdomen and pelvis. INDICATION: Abdominal pain. TECHNIQUE: Multidetector CT images of the abdomen and pelvis were obtained with oral and intravenous contrast. Sagittal and coronal reformations were also performed. DLP: 990 mGy-cm. COMPARISONS: CT is available from July 16, 2017 as well as a more recent ultrasound from April 13, 2018. FINDINGS: Minor dependent changes are found at each lung base. Heart is again borderline in size. No focal liver lesions are identified. Persistent low attenuation of the liver is consistent with fatty infiltration. There is no biliary dilatation. The gallbladder appears normal. Pancreas, spleen, and adrenal glands are also unremarkable. Kidneys demonstrate no evidence for stones, hydronephrosis or solid mass or perfusion defect on either side. The stomach and small bowel appear normal. Large bowel is also unremarkable. Prostate is borderline in size. Distal ureters, seminal vesicles and bladder are unremarkable. Major vascular structures appear patent. There is, however, very mild stenosis of the superior mesenteric artery due to smooth soft tissue plaque (4:32), probably unchanged. Proliferation of small central mesenteric lymph nodes is doubtful in significance and appears unchanged. No retroperitoneal lymphadenopathy. Again noted is an umbilical hernia containing only fat. The sac is smaller on this study but there appears to be a fairly narrow neck, narrower than before. There are no suspicious bone lesions. Vertebral bodies are preserved in height. Slight narrowing of sacroiliac joints including slight contour irregularities. This suggests possibility of mild sacroiliitis. IMPRESSION: 1. Fat-containing umbilical hernia. ??Correlation with physical findings and symptoms is suggested. 2. Persistent hepatic steatosis. 3. Possibility of mild sacroiliitis. 4. Very mild superior mesenteric artery stenosis. POI: [place], [place] ELECTRONICALLY SIGNED BY: ??NATHALIE ARIZA 03/29/2019 12:41 PM Procedure Note Nathalie Ariza MD - 08/06/2023 DEPARTMENTOF RADIOLOGY Kevin t: CATHLEEN SHAW Unit #:[id number] [place] MD: RENATO YANCEY MD :1965 Procedure: CT Abdomen & Pelvis W/IV & PO Age:53 Location: CAT ExamDate: 03/29/19 Status: REG CLIRoom/Bed: Primary MD: HUGH WRIGHT PatientAcct #: [id number] Order:CTABPELIPO Additional Copy: RENATO YANCEY MD, ALAN PA - EXAMINATION: CT of the abdomen and pelvis. INDICATION: Abdominal pain. TECHNIQUE: Multidetector CT images of the abdomen and pelvis wereobtained with oral and intravenous contrast. Sagittal and coronal reformations were also performed. DLP: 990 mGy-cm. COMPARISONS: CT is available from July 16, 2017 as well as a morerecent ultrasound from April 13, 2018. FINDINGS: Minor dependent changes are found at each lung base. Heart is again borderline in size. No focal liver lesions are identified. Persistent low attenuation of theliver is consistent with fatty infiltration. There is no biliary dilatation. The gallbladder appears normal. Pancreas, spleen, andadrenal glands are also unremarkable. Kidneys demonstrate no evidence for stones, hydronephrosis or solid mass or perfusion defecton either side. The stomach and small bowel appear normal. Large bowel is alsounremarkable. Prostate is borderline in size. Distal ureters, seminal vesicles andbladder are unremarkable. Major vascular structures appear patent. There is, however, very mild stenosis of the superior mesentericartery due to smooth soft tissue plaque (4:32), probably unchanged. Proliferation of small central mesenteric lymph nodes isdoubtful in significance and appears unchanged. No retroperitoneal lymphadenopathy. Again noted is an umbilical hernia containing only fat. The sac issmaller on this study but there appears to be a fairly narrow neck, narrower than before. There are no suspicious bone lesions. Vertebral bodies are preserved inheight. Slight narrowing of sacroiliac joints including slight contour irregularities. This suggests possibility of mildsacroiliitis. IMPRESSION: 1. Fat-containing umbilical hernia. Correlation with physical findingsand symptoms is suggested. 2. Persistent hepatic steatosis. 3. Possibility of mild sacroiliitis. 4. Very mild superior mesenteric artery stenosis. POI: Bettina Guevara [place] ELECTRONICALLY SIGNED BY: NATHALIE ARIZA 03/29/2019 12:41 PM us Renato Yancey MD IMG CT PROCEDURES Final Result * CT Angiogram Chest W WO Contrast (01/10/2014 1:24 PM EST) Anatomical Region Laterality Modality Body Computed Tomogra phy 01/10/2014 1:40 PM EST Narrative 01/10/2014 2:38 PM EST ? DEPARTMENT OF RADIOLOGY Patient: CATHLEEN SHAW ? Unit #: [id number] Ordering MD: PALMER NAGEL MD ?: 1965 Procedure: CT Chest CTA ? Age: 48 Location: ECCBOARD ?Exam Date: 01/10/14 Status: ADM IN ?Room/Bed: ??ECC-2 Primary MD: ? Patient ?Order: [id number] Additional Copy: ??PALMER NAGEL MD, ISSAM A MD - CHEST CTA: CLINICAL HISTORY: 48-year-old man with chest pain assess for pulmonary embolism. COMPARISON: 10/31/09 and chest radiograph from earlier today. TECHNIQUE: Multidetector CT was used to obtain contiguous axial images through the chest following the administration of IV contrast. ??Multiplanar reformations were provided. FINDINGS: ??The pulmonary arterial tree opacifies normally without evidence of filling defect to suggest the presence of a pulmonary embolism. The thoracic aorta is normal in ??course and caliber without evidence of dissection or aneurysm. There is no mediastinal, hilar, or axillary lymphadenopathy. ??The airway is centrally patent. ??No pleural or pericardial effusion is seen. ??Heart is normal in size and shape. ??The imaged portion of the thyroid gland is unremarkable. Lung windows demonstrate no worrisome nodule, mass, or consolidation. The imaged upper abdomen is unrevealing. No suspicious bony lesion is seen. IMPRESSION: No pulmonary embolism or acute aortic pathology. A preliminary report was provided at the time of initial review by Dr. Xochilt Pierre. POI: ??[place] ELECTRONICALLY SIGNED BY: ??XOCHILT PIERRE MD 01/10/2014 2:35 PM Procedure Note Provider, Historical Conversion - 08/08/2023 DEPARTMENTOF RADIOLOGY Kevin t: CATHLEEN SHAW Unit #:[id number] Ordering MD: PALMER NAGEL MD :1965 Procedure: CT Chest CTA Age:48 Location: [facility] ExamDate: 01/10/14 [facility] Primary MD: PatientAcct #: [id number] Order:[id number] Additional Copy: PALMER NAGEL MD, ISSAM A MD - CHEST CTA: CLINICAL HISTORY: 48-year-old man with chest pain assess for pulmonaryembolism. COMPARISON: 10/31/09 and chest radiograph from earlier today. TECHNIQUE: Multidetector CT was used to obtain contiguous axial imagesthrough the chest following the administration of IV contrast. Multiplanar reformations were provided. FINDINGS: The pulmonary arterial tree opacifies normally withoutevidence of filling defect to suggest the presence of a pulmonary embolism. The thoracic aorta is normal in course and caliber withoutevidence of dissection or aneurysm. There is no mediastinal, hilar, or axillary lymphadenopathy. The airway is centrally patent. Nopleural or pericardial effusion is seen. Heart is normal in size and shape. The imaged portion of the thyroid gland isunremarkable. Lung windows demonstrate no worrisome nodule, mass, or consolidation. The imaged upper abdomen is unrevealing. No suspicious bony lesion is seen. IMPRESSION: No pulmonary embolism or acute aortic pathology. A preliminary report was provided at the time of initial review by Dr.Sejal Pierre. POI: [place], [place] ELECTRONICALLY SIGNED BY: XOCHILT PIERRE MD 01/10/2014 2:35 PM Palmer Nagel IM CT PROCEDURES Final Result from Last 3 Months or Most Recently Relevant to Health Maintenance Insurance [facility] Advance Directives Documents on File Type Date Recorded Patient Hybrid Tester Expl anation Health Care Proxy 05/02/2022 Health Care Proxy 05/02/2022 Health Care Proxy 05/02/2022 Health Care Proxy 05/02/2022 Health Care Proxy 05/02/2022 Health Care Proxy 05/02/2022 Health Care Proxy 05/02/2022 Health Care Proxy 05/02/2022 Health Care Proxy 05/02/2022 Health Care Proxy 05/02/2022 Advance Directive 04/29/2022 3:27 PM Care Teams Dining Room Captain Relationship Specialty Start Date End Date Chance [place] MD [address] [place] [address] PCP - General Family Medicine 08/08/24
--- OUTSIDE RECORDS SUMMARY | 2025-02-20 17:09 | XMS_ITS | Encounter Summary ---
Author Organization [facility] Address [address] [place] [address] Care Team Providers Care Gore Cutter Name Role Phone Chance [place] MD Primary Care Provider [phone] Encounter Details Date Type Department Care Team ([facility] Contact Info) Description 04/23/2022 Ophthalmology Data Conversion [facility] Ophthalmology [address] [place] [address] Michaela Su MD [address] [place] [phone] Social History Tobacco Use Types Packs/Day Years [...] Upcoming Encounters Date Type Department Care Team ([facility] Contact Info) Description 03/31/2025 9:00 AM EDT Office Visit [facility] [address] Department [address] [place] [phone] Chance [place] MD [address] [place] [address] 05/03/2025 8:00 AM EDT Office Visit [address] Rheumatology [address] [place] [address] Pedro Gerardo MD [address] [place] [address] 05/09/2025 12:00 PM EDT Office Visit [facility] Ophthalmology 20 [place] [address] Michaela Su MD 20 [place] [address] documented as of this encounter Visit Diagnoses Not on filedocumented in this encounter Additional Health Concerns Infection Onset Date Last Indicated Resolved Time R/O Respiratory Virus Infection 01/29/2024 01/29/2024 1:17 PM EDT R/O Influenza 01/29/2024 01/29/2024 01/29/2024 1:1 7 PM EDT COVID-19 - Suspected infection 01/29/2024 01/29/2024 01/29/2024 1:17 PM EDT documented as of this encounter Care Teams Gore Cutter Relationship Specialty Start Date End Date Chance [place] MD [address] [place] [address] PCP - General Family Medicine 08/08/24 documented as of this encounter
--- OUTSIDE RECORDS SUMMARY | 2025-02-20 17:09 | XMS_ITS | Encounter Summary ---
Author Organization [facility] Address [address] [place] [address] Care Team Providers Care Tooling Engineer Name Role Phone Chance [place] MD Primary Care Provider [phone] Encounter Details Date Type Department Care Team (Late st Contact Info) Description 08/20/2020 Ophthalmology Data Conversion [facility] Historical Conversion Department [address] [place] [address] [address] Social History Tobacco Use Types Packs/Day Years [...] 03/31/2025 9:00 AM EDT Office Visit [facility] 10 [address] Main Department 10 [facility] [place] [address] Chance [place] MD [address] [place] [address] 05/03/2025 8:00 AM EDT Office Visit [address] Rheumatology [address] [place] [address] Pedro Gerardo MD [address] [place] [address] 05/09/2025 12:00 PM EDT Office Visit [facility] Ophthalmology [address] [place] [address] Michaela Su MD 20 [place] [address] documented as of this encounter Visit Diagnoses Not on filedocumented in this encounter Additional Health Concerns Infection Onset Date Last Indicated Resolved Time R/O Respiratory Virus Infection 01/29/2024 01/29/2024 1:17 PM EDT R/O Influenza 01/29/2024 01/29/2024 01/29/2024 1:1 7 PM EDT COVID-19 - Suspected infection 01/29/2024 01/29/2024 01/29/2024 1:17 PM EDT documented as of this encounter Care Teams Tooling Engineer Relationship Specialty Start Date End Date Chance [place] MD [address] [place] [phone] PCP - General Family Medicine 08/08/24 documented as of this encounter
--- OUTSIDE RECORDS SUMMARY | 2025-02-20 17:10 | XMS_ITS | Referral Summary ---
Author Organization [facility] Address [address] [place] [address] Care Team Providers Care Geothermal Operating Engineer Name Role Phone Chance [place] MD Primary Care Provider [phone] Encounters Date Type Department Care Team Description 02/13/2025 Refill [facility] 10 [facility] Department [address] [place] [phone] Maryellen Benitez MA Type 2 diabetes mellitus with hyperglycemia, without long-term current use of insulin (HCC); Type 2 diabetes mellitus with other specified complication, unspecified whether adjunct faculty for medical terminology insulin use (HCC); Hypercholesterolemia 02/13/2025 Refill [facility] [address] [phone] Maryellen Benitez MA 02/13/2025 Telephone [facility] [address] [phone] Chance Byrant MD Med Refill 02/03/2025 Refill [facility] 198 [facility] Endocrinology Department 198 [place] [address] Edy Slade MD Type 2 diabetes mellitus with other specified complication, unspecified whether adjunct faculty for medical terminology insulin use 12/28/2024 Refill [facility] 100 [facility] Department 100 [facility] [address] [place] [phone] Navin Kelly MD Hypercholesterolemia (Primary Dx) 12/28/[address] Endocrinology Department 198 [place] [address] Edy Slade MD Type 2 diabetes mellitus with other specified complication, unspecified whether adjunct faculty for medical terminology insulin use from Last 3 Months Allergies Active Allergy Reactions Criticality Noted Date [...] mellitus with other specified complication, unspecified whether adjunct faculty for medical terminology insulin use (HCC) Test 2 times daily [...] mellitus with other specified complication, unspecified whether jail insulin use (HCC) Take 1 tablet (10 [...] hyperglycemia, without long-term current use of insulin ([facility]) Use to test 3 times daily. 300 strip 5 Active pravastatin (PRAVACHOL) 40 mg tabletIndication s:Hypercholester olemia Take 1 tablet (40 mg total) by mouth once a day. 90 tablet 3 5 Active metFORMIN ER (GLUCOPHAGE XR) 500 mg tabletIndication s:Type 2 diabetes mellitus with other specified complication, unspecified whether adjunct faculty for medical terminology insulin use (HCC) TAKE 1 TABLET BY [...] Diagnosed Date Resolved Date Health care maintenance 03/29/2024 09 Acute cough 01/19/2024 03/29/2024 Assessment & Plan [...] Somatic dysfunction of sacroiliac joint 06/21/2015 01/19/2024 Immunizations Immunization Administration Dates Next Due Influenza, Injectable, [place] Canine Kidney, Preservative Free, Quadrivalent 08/20/2020,12/03/2018 Influenza, Injectable, Quadr ivalent, Contains Preservative 10/09/2018 Influenza, Injectable, Quadr ivalent, Preservative Free 11/22/2022,08/18/2019,08/18/2016 Influenza, Quadrivalent, Rec ombinant, Injectable, PF 10/18/2021 Influenza, Trivalent, MDV, Injectable 08/08/2014 Influenza, Unspecified 08/02/2024,11/04/2023 Pneumococcal Polysaccharide Vaccine, 23 Valent 08/18/2016 Pneumococcal conjugate PCV20 ,polysaccharide [id number] conjugate, adjuvant, PF (Prevnar 20) 08/08/2024 Tetanus Toxoid, Reduced Diph theria Toxoid, and Acellular Pertussis Vaccine, Adsorbed 12/19/2019 Zoster Vaccine Recombinant 08/17/2024 Social History Tobacco Use Types Packs/Day Years Used Date Smoking Tobacco: Former Smokeless Tobacco: Never Tobacco Cessation:Counseling Given: Not Answered Comments:: Alcohol Use Standard Drinks/Week Comments Not Currently 0 (1 standard drink = 0.6 oz pur e alcohol) [facility] Utilities Answer Date Recorded In the past 12 months has th e electric, gas, oil, or water company threatened to shut off services in your [...] [facility] [address] Main Department 10 [facility] [place] [phone] Chance [place] MD [address] [place] [address] 05/03/2025 8:00 AM EDT Office Visit [facility] [address] Rheumatology [address] [place] [address] Palmer Gerardo MD [address] [place] [address] 05/09/2025 12:00 PM EDT Office Visit [facility] Ophthalmology 20 [place] [address] Michaela Su MD [address] [place] [address] Procedures * Due to [place] state law, this organization might not be [...] to Health Maintenance Results * Due to [place] state law, this organization might not be sharing negative HIV tests. * COLONOSCOPY (10/17/2024) Narrative Procedure Note Renato Yancey MD - 10/17/2024 12:17 PM EST [facility] Patient Name: Po Shaw Procedure Date: [...] - 5.7 % 08/11/2024 9:09 AM EDT [facility] Estimated Average Glucose 160 mg/dL 08/11/2024 9:09 AM EDT [facility] Blood Structure of peripheral vein / Unknown Venipuncture / Unknown 08/11/2024 8:35 AM EDT 08/11/2024 8:44 AM EDT Diandra Nazario NP LAB BLOOD ORDERABLES Final Result [facility] [address] [place] [address] [place] [address], [place] [phone] * Hepatitis C Antibody w/Reflex to HCV RNA, Quantitative PCR (07/26/2024 9:05 AM EDT) Pathologist [facility] Hepatitis C Antibody Interpretation Nonreactive Nonreactive 07/26/2024 1:20 PM EDT [facility] Blood Structure of peripheral vein / Unknown Venipuncture / Unknown 07/26/2024 9:05 AM EDT 07/26/2024 9:08 AM EDT Renato Yancey MD LAB BLOOD ORDERABLES Final Resul t [facility] [address] [place] [address], * (ABNORMAL) Comprehensive Metabolic Panel (07/26/2024 9:05 AM EDT) [facility] NA 143 136 - 145 mmol/L 07/26/2024 9:52 AM EDT [facility] K 4.9 3.5 - 5.1 mmol/L 07/26/2024 9:52 AM EDT [facility] Cl 108 98 - 109 mmol/L 07/26/2024 9:52 AM EDT [facility] CO2 25 23 - 32 mmol/L 07/26/2024 9:52 AM EDT [facility] Anion Gap 15 >=0 07/26/2024 9:52 AM EDT [facility] Glucose 144(H) 60 - 99 mg/dL 07/26/2024 9:52 AM EDT [facility] Creatinine 0.99 0.50 - 1.12 mg/dL 07/26/2024 9:52 AM EDT [facility] Calcium 9.3 8.4 - 10.4 mg/dL 07/26/2024 9:52 AM EDT [facility] Total Protein 7.2 6.6 - 8.7 g/dL 07/26/2024 9:52 AM EDT [facility] Albumin 4.4 3.5 - 5.0 g/dL 07/26/2024 9:52 AM EDT [facility] Bilirubin, Total 0.3 0.2 - 1.2 mg/dL 07/26/2024 9:52 AM EDT [facility] Alkaline Phosphatase 63 40 - 129 U/L 07/26/2024 9:52 AM EDT [facility] AST 20 0 - 40 U/L 07/26/2024 9:52 AM EDT [facility] ALT 15 <=41 U/L 07/26/2024 9:52 AM EDT [facility] BUN 18 8 - 23 mg/dL 07/26/2024 9:52 AM EDT [facility] eGFR 87 >=60 mL/min/1. 73m2 07/26/2024 9:52 AM EDT [facility] Comment:The estimated glomer ular filtration rate [...] - 4.2 g/dL 07/26/2024 9:52 AM EDT [facility] A/G Ratio 1.6 1.5 - 3.0 07/26/2024 9:52 AM EDT [facility] Blood Structure of peripheral vein / Unknown Venipuncture / Unknown 07/26/2024 9:05 AM EDT 07/26/2024 9:08 AM EDT Renato Yancey MD LAB BLOOD ORDERABLES Final Resul t [facility] [address] [address], [place] [phone] * Microalbumin, Random Urine with Creatinine (03/29/2024 9:32 AM EDT) Creatinine, Urine 104 mg/dL 03/29/2024 10:52 AM EDT [facility] Microalbumin, Urine 7 <=20 mg/L 03/29/2024 10:52 AM EDT [facility] Microalb/Creat Ratio, Random Urine 6.7 1.3 - 30.0 mg/g 03/29/2024 10:52 AM EDT [facility] Urine Urine specimen collection, clean catch / Unknown Non-Blood Collection / Unknown 03/29/2024 9:32 AM EDT 03/29/2024 10:16 AM EDT Hugh HERNÁNDEZ LAB URINE ORDERABLES Final Result Performing Organization Address City/State/[facility] Co de Phone Number [facility] [address] [address], [place] [phone] * CT Abdomen Pelvis with Contrast (03/29/2019 7:58 AM EDT) Anatomical Region Laterality Modality Body Computed Tomogra phy 03/29/2019 12:0 0 PM EDT Narrative 03/29/2019 12:43 PM EDT ? DEPARTMENT OF RADIOLOGY Patient: CATHLEEN SHAW ? Unit #: [id number] Ordering MD: RENATO YANCEY MD ?: 1965 [...] Very mild superior mesenteric artery stenosis. POI: [place] ELECTRONICALLY SIGNED BY: ??NATHALIE ARIZA 03/29/2019 12:41 PM Procedure Note Nathalie Ariza MD - 08/06/2023 DEPARTMENTOF RADIOLOGY Kevin t: CATHLEEN SHAW Unit #:[id number] [place] MD: RENATO YANCEY MD :1965 Procedure: CT Abdomen & Pelvis W/IV & PO Age:53 Location: CAT ExamDate: 03/29/19 Status: REG CLIRoom/Bed: Primary MD: HUGH WRIGHT PatientAcct #: [id number] Order:[id number] Additional Copy: RENATO YANCEY MD, ALAN [...] PM EST ? DEPARTMENT OF RADIOLOGY Patient: SHAWCATHLEEN ? Unit #: [id number] Ordering MD: PALMER NAGEL MD ?: 1965 [...] initial review by Dr. Xochilt Pierre. POI: ??[place] ELECTRONICALLY SIGNED BY: ??XOCHILT PIERRE MD 01/10/2014 2:35 PM Procedure Note Provider, Historical Conversion - 08/08/2023 DEPARTMENTOF RADIOLOGY Kevin t: CATHLEEN SHAW Unit #:[id number] Ordering MD: PALMER NAGEL MD :1965 Procedure: CT Chest CTA Age:48 Location: [facility] ExamDate: 01/10/14 Status: ADM [facility]/Bed: [facility] Primary MD: PatientAcct #: [id number] Order:[id number] Additional Copy: PALMER NAGEL MD, ISSAM [...] of initial review by Dr.Sejal Pierre. POI: [place], [place] ELECTRONICALLY SIGNED BY: XOCHILT PIERRE MD 01/10/2014 2:35 PM Palmer Nagel IM CT PROCEDURES Final Result from Last 3 Months or Most Recently Relevant to Health Maintenance Insurance [facility] Advance Directives Documents on File Type Date Recorded Patient Gray Tender Expl anation Health Care Proxy 05/02/2022 Health Care Proxy 05/02/2022 Health Care Proxy 05/02/2022 Health Care Proxy 05/02/2022 Health Care Proxy 05/02/2022 Health Care Proxy 05/02/2022 Health Care Proxy 05/02/2022 Health Care Proxy 05/02/2022 Health Care Proxy 05/02/2022 Health Care Proxy 05/02/2022 Advance Directive 04/29/2022 3:27 PM Care Teams Geothermal Operating Engineer Relationship Specialty Start Date End Date Chance [place] MD [address] [place] [address] PCP - General Family Medicine 08/08/24
--- OUTSIDE RECORDS SUMMARY | 2025-02-20 17:10 | XMS_ITS | Encounter Summary ---
Author Organization [facility] Address [address] [place] [address] Care Team Providers Care Buyer Broker Name Role Phone Chance [place] MD Primary Care Provider [phone] Reason for Visit * Reason Onset Date Comments PAC Appt Request - Established 03/17/2024 Encounter Details Date Type Department Care Team (Late st Contact Info) Description 03/17/2024 Telephone [facility] Patient Access Center [address] [place] [address] Telephone Intake, Staff PAC Appt Request - Established Social History Tobacco Use Types Packs/Day Years Used Date Smoking Tobacco: Former Smokeless Tobacco: Never Comments:: Alcohol Use Standard Drinks/Week Comments Not Currently 0 (1 standard drink = 0.6 oz pur e alcohol) Transportation Answer Date Recorded Please ngoc the areas for wh ich the patient would like information or assistance: None Apply 01/19/2024 Lack of Transportation (Medical) Not on file 01/19/2024 Housing Stability Answer Date Recorded Please ngoc the areas for wh ich the patient would like information or assistance: None Apply 01/19/2024 Unable to Pay for Housing in the Last Year Not o n file 01/19/2024 Last EPDS Total Score Not on file 01/19/2024 Unstable Housing in the Last Year Not on file 01/19/2024 Sex and Gender Information Value Date Recorded Sex Assigned at Male 04/01/2023 1:10 PM EDT Legal Sex Male 4:57 AM EDT Gender Identity Male 04/01/2023 1:10 PM EDT Sexual Orientation Straight 04/01/2023 1: 10 PM EDT documented as of this encounter Miscellaneous Notes * Telephone Encounter - Gardenia Wilson - 03/17/2024 3:49 PM EDT Scheduled 04/14. * Telephone Encounter - Leticia Whaley - 03/17/2024 3:21 PM EDT Pt is calling to say he needs appt after April 04. * Telephone Encounter - Gardenia Wilson - 03/17/2024 9:07 AM EDT Scheduled 03/24. * Telephone Encounter - Aurea Luther - 03/17/2024 9:00 AM EDT Posilviano calling because he is ill and cannot make his apt today and would like to reschedule PACunable to reschedule due to provider not listed for last seen. Connor. Please call him back to schedule apt [phone] documented in this encounter Plan of Treatment Upcoming Encounters Date Type Department Care Team (Late st Contact Info) Description 03/31/2025 9:00 AM EDT Office Visit [facility] 10 [facility] Department [address] [place] [address] [place] [phone] Chance [place] MD [address] [place] [address] 05/03/2025 8:00 AM EDT Office Visit [address] Rheumatology [address] [place] [address] Ngoc Gerardo MD [address] [place] [address] 05/09/2025 12:00 PM EDT Office Visit [facility] Ophthalmology [address] [place] [address] Michaela Su MD [address] [place] [address] documented as of this encounter Visit Diagnoses Not on filedocumented in this encounter Care Teams Buyer Broker Relationship Specialty Start Date End Date Chance [place] MD [address] [place] [address] PCP - General Family Medicine 08/08/24 documented as of this encounter
--- OUTSIDE RECORDS SUMMARY | 2025-02-20 17:10 | XMS_ITS | Data Portability ---
Author Organization [facility] - IP Address [address] [place] [address] Care Team Providers Care Manager Of Transportation Name Role Phone HUGH TRIMBLE Primary Care Provider Assessment No assessment recorded. Plan of Treatment Reminders Order Date Submit Date Provider Last Modified By Organization Details Last Modified Time Details Appointments None record ed. Lab None record ed. Referral None record ed. Procedures None record ed. Surgeries None record ed. Imaging None record ed. Medication Orders None record ed. Patient TargetsNo targets recorded. Patient InstructionsNo instructions recorded. Reason for Referral None Reported. Results Created Date Observation Date Name Description Value Unit Range Abnormal Flag Note LastModifiedBy Organization Detail LastModifiedTime 03/29/20 19 03/29/2019 CT, abdom en + pelvi s, w/ contr ast No observ ation record ed. [email or web address], [address], 04/11/2019 08:44:53 Result Notes None recorded. Problems Name Problem SNOMED Code Status Onset Date Resolution Date Notes Provider Name and Address Organization Details Recorded Time Hypercholestero lemia 52549576 Active 2018 Sophie scruggs [place] Xavier [facility] 9 14:05:26 Diabetes mellitus 83331930 Active 2018 Sophie scruggs [place] [facility] 9 14:05:33 Problem Notes None recorded. Procedures Surgical History None recorded. Imaging Results Imaging Date Name Status LastModified by Organiz ation Details LastModified Time 03/29/2019 CT, abdomen + pelvis, w/ contrast [email or web address] [address], [address], 04/11/2019 08:44:53 Procedure Notes None recorded. Medical Equipment None Reported. Allergies Allergen ID Allergen Name Allergen Category Reaction Reaction Severity Criticality Documentation Date Start Date Code Code System Note Provider Name and Address Organization Details Recorded Time 56492 Non-stero idal anti-infl ammatory agent (product) medicatio n facial swelling severe Not available 03/02/2019 95185 005 SNOMED Sophie Line Sarbjit scruggs [place] - [facility] 9 14:04:34 Medications Name Sig Start Date Stop Date Status Note LastModified by Organization Details LastModified Time vitamin d3 (jazmin) 50mcg cap TAKE 2 CAPSULES BY MOUTH ONCE DAILY active Not Available Not Available No t Available d3 2000unit capsule active Not Available Not Available Not Available cyclobenzap rine 10 mg tablet TAKE 1 TABLET BY MOUTH THREE TIMES DAILY NEEDED FOR MUSCLE SPASM active Not Available Not Available No t Available metformin 500 mg tablet Take 1 tablet twice a day by oral route. 12/21 completed Not Available Not Available Not Available pravastatin 40 mg tablet TAKE 1 TABLET BY MOUTH ONCE DAILY active Not Available Not Available No t Available FreeStyle Lancets 28 gauge USE TO CHECK GLUCOSE THREE TIMES DAILY active Not Available Not Available No t Available omeprazole 40 mg capsule,del ayed release active Not Available Not Available Not Available DOK 100 mg capsule active Not Available Not Available Not Available tamsulosin 0.4 mg capsule active Not Available Not Available Not Available metformin 1,000 mg tablet Take 1 tablet twice a day by oral route. active Not Available Not Available No t Available omeprazole 20 mg capsule,del ayed release 12/21 completed Not Available Not Available Not Available furosemide 20 mg tablet active Not Available Not Available Not Available Vitamin D2 1,250 mcg (50,000 unit) capsule Take 1 capsule every week by oral route. active Not Available Not Available No t Available metformin ER 500 mg tablet,exte nded release 24 hr TAKE 1 TABLET BY MOUTH ONCE DAILY WITH BREAKFAST AND 2 ONCE DAILY WITH DINNER active Not Available Not Available No t Available clotrimazol e 1 % topical cream APPLY TO THE AFFECTED AREA TWICE DAILY active Not Available Not Available No t Available glipizide 5 mg tablet Take 1 tablet twice a day by oral route. active Not Available Not Available No t Available duloxetine 20 mg capsule,del ayed release active Not Available Not Available Not Available duloxetine 30 mg capsule,del ayed release TAKE 1 CAPSULE BY MOUTH ONCE DAILY active Not Available Not Available No t Available Januvia 100 mg tablet TAKE 1 TABLET BY MOUTH ONCE DAILY active Not Available Not Available No t Available FreeStyle Lite Meter kit USE TO TEST TWICE DAILY active Not Available Not Available No t Available FreeStyle Lite Strips USE TO CHECK GLUCOSE TWICE DAILY active Not Available Not Available No t Available Systane Ultra 0.4 %-0.3 % eye drops INSTILL 1 DROP INTO EACH EYE 4 TIMES DAILY active Not Available Not Available No t Available sodium,pota ssium,mag sulfates 17.5 gram-3.13 gram-1.6 gram oral soln Take 354 mL every day by oral route as directed for 1 day. active Not Available Not Available No t Available Vitamin D3 50 mcg (2,000 unit) capsule TAKE 2 CAPSULES BY MOUTH ONCE DAILY active Not Available Not Available No t Available Farxiga 10 mg tablet TAKE 1 TABLET BY MOUTH ONCE DAILY active Not Available Not Available No t Available Linzess 72 mcg capsule active Not Available Not Available Not Available Vitals Date Recorded Body height Body mass index (BMI) Body weight Heart rate Systolic blood pressure Diastolic blood pressure Provider Name and Address Organization Details Last Updated DateTime 9 172.72 cm 29.1 kg/m2 38869.8 6 g 59 /min 116 mm[Hg] 70 mm[Hg] Sophie Schaffer [place] [facility] 9 14:09:57 Date Recorded Body height Body mass index (BMI) Body weight Heart rate Systolic blood pressure Diastolic blood pressure Provider Name and Address Organization Details Last Updated DateTime 9 172.72 cm 28.9 kg/m2 67460.5 5 g 58 /min 109 mm[Hg] 65 mm[Hg] Rosalind mirza [place] [facility] 9 14:11:04 Date Recorded Body height Body mass index (BMI) Body weight Heart rate Systolic blood pressure Diastolic blood pressure Provider Name and Address Organization Details Last Updated DateTime 0 172.72 cm 28.6 kg/m2 78190.3 7 g 71 /min 111 mm[Hg] 70 mm[Hg] Sabi Mar [facility] 0 13:16:30 Social History Question Answer Notes LastModified by Organizat ion Details LastModified Time Tobacco Smoking Status Never Smoker ISAMAR Gaytan [facility] 03/02/2019 14:08:40 What Was The Date Of Your Most Recent Tobacco Screening? 03/02/2019 Information n ot available 06/01/2019 Sex: Unknown Functional Status None recorded. Mental Status None recorded. Family History Relationship Description Onset Age of this Age Resolved Age Notes LastModified by Organization Details LastModified Time Father No current problems or disability [email or web address] Not available 03/02 14:08:36 Mother No current problems or disability [email or web address] Not available 03/02 14:08:37 Medical History Condition Response Hypertension N Immunizations Vaccine Type Date Status Note Provider Nam e and Address Organization Details Recorded Time Influenza, split virus, quadrivalent, preservative 8 completed ISAMAR Gaytan [facility] 03/02/2019 14:04:56 Past Encounters Encounter ID Performer Location Encounter Start Date Encounter Closed Date Diagnosis/Indication Diagnosis SNOMED-CT Code Diagnosis ICD10 Code Diagnosis Note [id number] Sophie Schaffer [facility] Office [address] [place] [address] [id number] 03/02/2019 13:59:26 03/02/2019 19:27:45 [id number] Sabi Mar [facility] [address] [place] [address] [id number] 09/14/2019 14:08:53 09/22/2019 13:03:18 [id number] Sabi Mar [facility] [address] [place] [address] [id number] 12/21/2019 13:15:11 12/21/2019 18:23:54 Abdominal pain 59579148 R10.9 [id number] Anya Hernandez [facility] [address] [place] [address] [id number] 07/26/2024 11:37:26 07/26/2024 11:39:30 Dysphagia 69498872 R13.10 Gastroesop hageal reflux disease without esophagitis 762425073 K21.9 [id number] Anya [facility] Office [address] [place] [address] [id number] 11/01/2024 14:53:42 11/01/2024 14:57:11 Ulcer of duodenum 51958892 K26.9 Abdominal bloating 45623 9008 R14.0 Health Concerns Section Related Observation LastModified by Organization Detai ls LastModified Time None Recorded Concern Status LastModified by Organization Details LastModified Time None Recorded Advance Directives Directive None Recorded Payers Encounter Date Sequence Insurance Name Policy Number Policy Rich Covered Member ID Rich Member ID Guarantor Name 03/02/2019 2 [place] [facility] [id number] [facility] 09/14/2019 1 [facility] ([facility]) [facility] Prarickbhai A Shaw [id number] [facility] 12/21/2019 1 [facility] ([facility] Pravinbhai A Shaw [id number] Pravinasif Shaw 07/25/2024 1 [facility] [id number] Pravinbhai A Shaw [id number] [facility] 10/31/2024 1 [facility] [id number] Pravinbhai A Shaw [id number] [facility]
--- OUTSIDE RECORDS SUMMARY | 2025-02-20 17:10 | XMS_ITS | Encounter Summary ---
Author Organization [facility] Address [address] [place] [address] Care Team Providers Care Right Of Way Cutter Name Role Phone Chance Bryant MD Primary Care Provider [phone] Encounter Details Date Type Department Care Team (Late st Contact Info) Description 04/22/2013 Ophthalmology Data Conversion [facility] Historical Conversion Department [address] [place] [address] [address] Social History Tobacco Use Types Packs/Day Years [...] [facility] [address] [facility] [place] [address] Chance Bryant MD [address] [place] [id number] 05/03/2025 8:00 AM EDT Office Visit [facility] [address] [facility] Rheumatology [address] [place] [id number] Pedro Gerardo MD [address] [place] [id number] 05/09/2025 12:00 PM EDT Office Visit [facility] Ophthalmology [address] [place] [address] Michaela Su MD [address] [place] [address] documented as of this encounter Visit Diagnoses Not on filedocumented in this encounter Additional Health Concerns Infection Onset Date Last Indicated Resolved Time R/O Respiratory Virus Infection 01/29/2024 01/29/2024 1:17 PM EDT R/O Influenza 01/29/2024 01/29/2024 01/29/2024 1:1 7 PM EDT COVID-19 - Suspected infection 01/29/2024 01/29/2024 01/29/2024 1:17 PM EDT documented as of this encounter Care Teams Right Of Way Cutter Relationship Specialty Start Date End Date Chance Bryant MD [address] [place] [id number] PCP - General Family Medicine 08/08/24 documented as of this encounter
--- OUTSIDE RECORDS SUMMARY | 2025-02-20 17:10 | XMS_ITS | Clinical Summary ---
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 Name Role Phone Unavailable Primary Care Provider Unavailabl e Social History Tobacco Use Types Packs/Day Years Used Date Smoking Tobacco: Never Assessed Sex and Gender Information Value Date Recorded Sex Assigned at Not on file Legal Sex Male 2:53 PM EST Gender Identity Not on file Sexual Orientation Not on file Plan of Treatment Health Maintenance Due Date Last Done Comments Colorectal Cancer: COLONOSCO PY Screening every 10 yrs (or Modifier) 1964 Depression: Screening Annual ly using PHQ-2/9 in Adults 18 yrs or above (or HM Modifier)([facility]) 1982 Hepatitis C Virus Infection in Adolescents and Adults: Screening (or Modifier) ([facility]) 1982 SDMD Screening Reminder: Cindy rodriguez for all adults ([facility]) 1982 Tobacco Smoking Cessation: i n Adults excluding Women: Behavioral and Pharmacotherapy Interventions ([facility]) 1982 DTaP/Tdap/Td Vaccines ([facility]) (1 - Tdap) 1983 Lipid Screening: Every 5 yrs for Men aged 35+ (or HM Modifier) ([facility]) 2000 Colorectal Cancer Screening 45 -75 Yrs (or HM Modifier) 2009 Colorectal Cancer: FLEXIBLE SIGMOIDOSCOPY Screening every 5 yrs 2009 Colorectal Cancer: Fecal Immunochemical Test (FIT) Annually [facility] 2009 Colorectal Cancer: High-sens itivity gFOBT Screening Annually [facility] 2009 Colorectal Cancer: Stool Col oguard Screening every 3 yrs 2009 Colorectal Cancer:CT Colonog randi Screening every 5 yrs 2009 Zoster/Shingles Vaccine Seri es Screening: Adults aged 18+ yrs (or HM Modifiers)([facility]) (1 of 2) 2014 Flu Vaccination: Yearly for ages 18mos through 64 years (or Modifier)([facility]) 06/09/2024 COVID-19 Vaccine Screening: Initial Series and Booster Status ([facility]) ( - 2023-25 season) 2024 RSV Vaccines (1 - 1-dose 75+ series) 2039 Pneumococcal Vaccination Scr eening: Pts 0-19 & 19-49 yrs of age ([facility]) Aged Out No longer eligible based on patient's age to complete this topic Medical Devices Not on file Insurance [facility]
[2025-02-21 12:09] LABS: Free Prostate Spec Ag 0.1 ng/mL; Percent Free Prostate Spec Ag 50 % (calc) (>25); Prostate Specific Ag Total 0.2 ng/mL (< OR = 4.0)
== END 2025-02-20 14:36 | disposition home or self-care (01) ==
LOC: HO.XRAY 14:35
PROVIDERS: PCP Internal Medicine; Visit Provider Internal Medicine
DX: Z00.01 Encounter for general adult medical examination with abnormal findings (principal); E11.9 Type 2 diabetes mellitus without complications; E78.00 Pure hypercholesterolemia, unspecified; I10 Essential (primary) hypertension; M25.569 Pain in unspecified knee; N40.0 Benign prostatic hyperplasia without lower urinary tract symptoms
CPT/HCPCS: 36415; 73562; 80053; 80061; 82043; 82570; 83036; 84154; 85025

== ENCOUNTER → 2025-02-20 15:10 | Outpatient (BNV) | payer OTHER, SELFPAY | PROVIDERS: PCP Internal Medicine; Visit Provider Radiology Diagnostic Radiology | DX: M17.0 Bilateral primary osteoarthritis of knee (principal) | CPT/HCPCS: 73562 ==